=== PATIENT | male | born 1965 | race Caucasian/White ===

== ENCOUNTER → 2017-08-13 | Outpatient (CLI) | payer OTHER ==
[~2017-08-13] MED LIST: AMBIEN 5 MG TABL5 M1 PO; AMITRIPTYLINE100 MG PO; BELSOMRA20 MG PO; COMBIVENT INH; COMBIVENT RESPIM4 GM INH; FLEXERIL PO; FLOMAX0.4 MG PO; HYDROCODONE-AP1 EAC6 PO; KEFLEX500 MG PO; LIPITOR 20 MG T20 M1 PO; MEDROLDOSEPACK PO; MOBIC15 MG PO; NEURONTIN 300300 M1 PO; NORCO 5-325 TA1 EACH PO; NORTRIPTYLINE; OMEPRAZOLE40 MG PO; SINGULAIR 10 MG10 M1 PO; TRAZODONE HCL50 MG PO; WELLBUTRIN XL150 MG PO
--- NOTE | 2017-08-20 07:32 | PAINCON ---
[address] [address] PAIN MANAGEMENT CONSULTATION Name: FEROZSOFIA M Room: [facility]#: [id number] Admission: 08/13/17 Attend Phys: Sarah Beth De Anda Discharge: Date of : 63 Report #: [id number] THIS REPORT FOR: //name// CC: Julian Ordonez DATE OF SERVICE: 08/13/2017 HISTORY OF PRESENT ILLNESS: The patient is a 52-year-old gentleman, prior seen in the pain clinic on 01/29/2017. The patient was given a lumbar epidural injection with ongoing improvement of lumbar radicular pain. Returns to the pain clinic today, it has been approximately 6 months since our last visit. He had followed up with Dr. Conti at [facility], was referred to physical therapy. He is doing ongoing physical therapy 3 times a week. Has developed recurrent pain, low back, right anterior thigh down the leg, moderately antalgic gait. Chiropractic manipulation has afforded only transient relief. He has continued to take gabapentin 300 mg 2 at bedtime, which has helped remarkably with the upper back pain. In fact, he notes it is "unbelievable" the amount of relief he had with the back pain. He feels that the gabapentin is quite efficacious and wishes to redo that prescription. PHYSICAL EXAMINATION: GENERAL: Does show 52-year-old gentleman. Diffuse tenderness in the mid back area, though no discrete trigger points are noted. VITAL SIGNS: Blood pressure 134/80, pulse 62, respirations 16, BMI is 33.8 kilograms per meter squared. MUSCULOSKELETAL: Rises from chair using armrest. Upper back and trapezius muscles show some diffuse tenderness. No discrete trigger points are noted. Range of motion is good. Again with a near 6 weeks of PT ongoing, lumbar radicular symptoms remain problematic. Modestly antalgic gait. Positive straight leg raise, right. Slight decreased right hip flexion, lower extremity extension strength. ASSESSMENT: 1. Symptomatic thoracic radiculopathy, neuropathic pain. Recommendation: Continue gabapentin 300 mg 2-3 tablets at bedtime, taken the liberty of writing for 75 tablets with 2 refills. 2. Symptomatic lumbar radiculopathy, good relief with prior epidural injection back in January. RECOMMENDATION: Repeat epidural injection under fluoroscopy today. Continue physical therapy. Follow up in 2 weeks for reevaluation. PROCEDURE: Lumbar epidural [place] [address] PAIN MANAGEMENT CONSULTATION Name: SOFIA REDMAN Room: [facility]#: [id number] Admission: 08/13/17 Attend Phys: Sarah Beth De Anda Discharge: Date of : 63 Report #: [id number] PROCEDURE NOTE: After both written and informed consent to include risk of spinal cord damage, increased pain, weakness and dural puncture, the patient was taken to the fluoroscopy suite, placed in the prone position. After sterile prep and drape, a skin wheal with lidocaine was raised. A 22-gauge epidural Tuohy needle was inserted in the midline at L4-L5 with good loss to resistance. Negative aspiration for cerebrospinal fluid or blood was noted. Then 1 mL of Omnipaque under biplanar fluoroscopy showed good spread within the epidural space. This was followed with 80 mg of triamcinolone plus 1 mL of 1.5% preservative-free Xylocaine, 0.5 mL Xylocaine was then injected to flush the needle; it was removed. The patient was monitored for an appropriate period of time and discharged in good and stable condition. <ELECTRONICALLY SIGNED> By: Bernabe Ordonez DO 08/20/17 0732 1220 [id number] Ordonez DO /nt
== END | disposition home or self-care (01) ==
LOC: M.PC 01:27
DX: M54.16 Radiculopathy, lumbar region (principal); M54.14 Radiculopathy, thoracic region

== ENCOUNTER → 2017-10-29 | Outpatient (CLI) | payer OTHER ==
--- NOTE | 2017-11-03 08:35 | PAINCON ---
[address] [address] PAIN MANAGEMENT CONSULTATION Name: SOFIA REDMAN [id number] Admission: 10/29/17 Attend Phys: Sarah Beth De Anda Discharge: Date of : 63 Report #: [id number] THIS REPORT FOR: //name// CC: Julian Tse DATE OF SERVICE: 10/29/2017 The patient is a very pleasant 52-year-old gentleman, prior treated for symptomatic lumbar radiculopathy and thoracic radicular symptoms. Was seen in 11/2016 as an initial consult, had thoracic epidural injection on 12/17/2016 with overall improvement of symptoms, had lumbar epidural injection 01/29/2017 with overall improvement of lumbar radicular symptoms. The patient was last seen on 08/13/2017, had recurrence of lumbar radicular pain with paresthesia in the right leg in L3 and L4 distributions. I have done a single injection and referred the patient for surgery. Notes that the injection did afford good relief, but pain has begun to recur (patient notes 60-70% relief, but pain in the right thigh is recurrent in terms weakness and paresthesia). A new MRI from 10/22/[address] Woodrow Dawn does note L3-L4 to have facet and ligamentous hypertrophy, epidural lipomatosis is present, thecal sac is quite compressed at 5 mm AP diameter. There is mild left and moderate right foraminal stenosis. Again, he has right L3 and L4 distribution pain. L4-L5 notes diffuse disk bulge with epidural lipomatosis, thecal sac measuring 6 mm with mild bilateral facet stenosis. PHYSICAL EXAMINATION: Shows pleasant 52-year-old gentleman, BMI is modestly elevated at 35.2 kg/m2, blood pressure is 127/75, pulse 70, respirations 18. He is alert and oriented to person, place and time, judged to be a reasonable historian. Rise from chair using armrest, does have an antalgic gait, decreased right hip flexion and lower extremity extension strength. Does have objective 2-point discrimination both on the lateral and the medial thigh (there is some thought that he had lateral femoral cutaneous neuralgia, a.k.a. Meralgia paresthetica). With decreased 2-point discrimination on the medial aspect of the thigh, I think is somewhat precludes that diagnosis. He does have intact 2-point discrimination on the contralateral, left leg. Decrease hip flexion strength and lower extremity extension strength with diminished patellar reflex on the right side and significant compromise noted on the MRI correspond to symptomatic lumbar spinal stenosis. RECOMMENDATIONS: After discussion with the patient today, we have elected to proceed with epidural injection under fluoroscopy today, right of midline L4-[place] [address] PAIN MANAGEMENT CONSULTATION Name: SOFIA REDMAN Octavio Room: [facility]#: [id number] Admission: 10/29/17 Attend Phys: Sarah Beth De Anda Discharge: Date of : 63 Report #: [id number] We will have the patient follow up with Dr. Woodrow Dawn for consideration for decompressive lumbar laminectomy. Neuropathic pain and thoracic radicular symptoms are relatively quiescent. Continue gabapentin 300 mg at bedtime. Does not require prescription for same. I trialled nortriptyline in the past, but this caused some vertigo and subjective dizziness and he self-discontinued. PROCEDURE: Lumbar epidural injection under fluoroscopy. PROCEDURE NOTE: After both written and informed consent to include risk of spinal cord damage, increased pain, weakness and dural puncture, the patient was taken to the fluoroscopy suite, placed in the prone position. After sterile prep and drape, a skin wheal with lidocaine was raised. A 22-gauge epidural Tuohy needle was inserted in the midline at L4-L5 with good loss to resistance. Negative aspiration for cerebrospinal fluid or blood was noted. Then 1 mL of Omnipaque under biplanar fluoroscopy showed good spread within the epidural space. This was followed with 80 mg of triamcinolone plus 1 mL of 1.5% preservative-free Xylocaine, 0.5 mL Xylocaine was then injected to flush the needle; it was removed. The patient was monitored for an appropriate period of time and discharged in good and stable condition. <ELECTRONICALLY SIGNED> By: Bernabe Ordonez DO 11/03/17 0835 1331 [id number] Ordonez DO /nt
== END | disposition home or self-care (01) ==
LOC: M.PC 02:57
DX: M54.16 Radiculopathy, lumbar region (principal); G89.29 Other chronic pain; J44.9 Chronic obstructive pulmonary disease, unspecified; E78.5 Hyperlipidemia, unspecified; N40.0 Benign prostatic hyperplasia without lower urinary tract symptoms; K21.9 Gastro-esophageal reflux disease without esophagitis; F32.9 Major depressive disorder, single episode, unspecified; Z98.890 Other specified postprocedural states; Z79.899 Other long term (current) drug therapy; Z87.19 Personal history of other diseases of the digestive system

== ENCOUNTER → 2017-12-03 | Outpatient (CLI) | payer OTHER ==
--- NOTE | 2017-12-04 07:09 | PAINCON ---
[facility] [address] [place] [address] PAIN MANAGEMENT CONSULTATION Name: FEROZSOFIA M Room: [facility]#: [id number] Admission: 12/03/17 Attend Phys: Sarah Beth De Anda Discharge: Date of : 63 Report #: [id number] THIS REPORT FOR: //name// CC: Julian Ordonez DATE OF SERVICE: 12/03/2017 The patient is a very pleasant 52-year-old gentleman, last seen in the pain clinic 10/29/2017. We did epidural injection at that time with about 70% improvement in baseline pain. The pain is beginning to recur into the low back, right buttock and leg. Notes the paresthesia has improved, but does have some ongoing weakness in the right leg. Comorbidity includes COPD. The patient was recently released from work due to both pain concerns and COPD. I suggested that during this hiatus, he follow up with Dr. Dawn regarding decompressive laminectomy. He has fairly tight spinal stenosis at L3-L4 and L4-L5. PHYSICAL EXAMINATION: Today does show a pleasant 52-year-old gentleman, BMI is 34 kilograms per meter squared. Blood pressure 130/58, pulse 72, respirations are 16. Rises from chair using armrest, modestly antalgic gait, diffuse tenderness across the low back, positive straight leg raise on the right. Slight decreased right hip flexion strength. Incidentally, he has a finger splint on the left arm, he had some sutures in the fifth finger. There are no signs of infection or erythema. ASSESSMENT: Symptomatic lumbar radiculopathy secondary to spinal stenosis by clinical exam and history. RECOMMENDATION: Repeat epidural injection under fluoroscopy today at L5-S1. Follow up with Dr. Dawn for likely decompressive laminectomy. PROCEDURE: Lumbar epidural injection under fluoroscopy. PROCEDURE NOTE: After both written and informed consent to include risk of spinal cord damage, increased pain, weakness and dural puncture, the patient was taken to the fluoroscopy suite, placed in the prone position. After sterile prep and drape, a skin wheal with lidocaine was raised. A 22-gauge epidural Tuohy needle was inserted in the midline at L5-S1 with good loss to resistance. Negative aspiration for cerebrospinal fluid or blood was noted. Then 1 mL of Omnipaque under biplanar fluoroscopy showed good spread within the epidural space. This was followed with 80 mg of triamcinolone plus 1 mL of 1.5% preservative-free Xylocaine, 0.5 mL Xylocaine [place] [address] PAIN MANAGEMENT CONSULTATION Name: SOFIA REDMAN Room: [facility]#: [id number] Admission: 12/03/17 Attend Phys: Sarah Beth De Anda Discharge: Date of : 63 Report #: [id number] needle; it was removed. The patient was monitored for an appropriate period of time and discharged in good and stable condition. <ELECTRONICALLY SIGNED> By: Bernabe Ordonez DO 12/04/17 0709 1150 1539[facility] Centersnehal Ordonez DO /nt
== END | disposition home or self-care (01) ==
LOC: M.PC 03:44
DX: M48.061 Spinal stenosis, lumbar region without neurogenic claudication (principal); M54.16 Radiculopathy, lumbar region; G89.29 Other chronic pain; J44.9 Chronic obstructive pulmonary disease, unspecified; Z98.890 Other specified postprocedural states; Z79.899 Other long term (current) drug therapy

== ENCOUNTER 2019-01-01 18:38 | Emergency (ER) | payer OTHER ==
[~2019-01-01] VITALS: Ht 190.5 cm; Wt 127.0 kg
[2019-01-01 19:29] LABS: ABSOLUTE EOSINOPHILS 0.1 thou/uL (0.0-0.7); ABSOLUTE LYMPHOCYTES 2.1 thou/uL (0.8-5.3); ABSOLUTE MONOCYTES 0.5 thou/uL (0.0-1.2); ABSOLUTE NEUTROPHILS 3.2 thou/uL (1.6-8.1); BASOPHILS 0.6 %; EOSINOPHILS 2.1 %; HEMATOCRIT 46.1 % (42.0-52.0); HEMOGLOBIN 15.8 gm/dL (14.0-18.0); LYMPHOCYTES 35.6 %; MCH 30.2 pg (26.0-34.0); MCHC 34.2 g/dL (28.0-37.0); MCV 88.2 fL (80.0-100.0); MONOCYTES 7.8 %; MPV 7.7 fl. (7.2-11.1); NUCLEATED RBCS 0 /100WBC; PLATELET COUNT* 226 thou/uL (150-400); POLYS 53.9 %; RBC 5.23 mil/uL (4.50-6.00); RDW-CV 13.1 % (10.5-14.5); WBC 5.9 thou/uL (4.0-11.0)
[2019-01-01 19:33] LABS: ANION GAP 9 mmol/L (7-16); BUN 11 mg/dL (7-18); CHLORIDE 106 mmol/L (98-107); CO2 27 mmol/L (21-32); GLUCOSE 93 mg/dL (70-99); POTASSIUM 4.1 mmol/L (3.5-5.1); SODIUM 142 mmol/L (136-145)
[2019-01-01 19:43] LABS: ALBUMIN 4.1 g/dL (3.4-5.0); ALKALINE PHOSPHATASE 92 U/L (46-116); SGOT 23 U/L (15-37); SGPT 33 U/L (30-65); TOTAL BILIRUBIN 0.7 mg/dL (<0.1-1.0); TOTAL PROTEIN 7.1 g/dL (6.4-8.2); TROPONIN-I LEVEL <0.06 ng/mL (<0.06)
[2019-01-01] MEDS ORDERED: MEDROLDOSEPACK PO (20:09)
[2019-01-01] MEDS ORDERED: ACETAMINOPHEN-1 EAC1 PO (20:09)
[2019-01-01] MEDS ORDERED: NABUMETONE 750750 M1 PO (20:09)
[2019-01-01 20:20] VITALS: BP 146/95
--- NOTE | 2019-01-04 10:41 | EKG ---
[place] [address] ELECTROCARDIOGRAM REPORT Name: SOFIA REDMAN Room: [facility]#: [id number] Admission: 01/01/19 Attend Phys: Discharge: 01/01/19 Date of : 63 Report #: [id number] THIS REPORT FOR: //name// [facility] ED Test Date: 2019-01-01 Test Time: 19:33:02 Pat Name: SOFIA REDMAN Department: Room: Gender: M Unit Controller: : 1965 Requested By: Mariajose Kraft Order Number: [id number] MD: Chace Rebolledo Measurements Intervals [place] Rate: 59 P: 46 ND: 214 QRS: -2 QRSD: 99 T: 10 QT: 406 QTc: 403 Interpretive Statements Sinus rhythm Prolonged ND interval ST elev, probable normal early repol pattern Compared to ECG 10/29/2014 12:09:48 no change Electronically Signed On 01-04-2019 10:41:24 CDT by Chace Rebolledo [email or web address] <ELECTRONICALLY SIGNED> By: Chace Rebolledo MD, [facility] 01/04/19 1041 32 32 Chace Rebolledo MD, FAC /EPI
== END 2019-01-01 20:22 | disposition home or self-care (01) ==
LOC: M.ERS 18:38
PROVIDERS: Nurse Practitioner Family
DX: M79.632 Pain in left forearm (principal); M25.562 Pain in left knee; M79.622 Pain in left upper arm; J44.9 Chronic obstructive pulmonary disease, unspecified

== ENCOUNTER → 2019-09-13 | Outpatient (CLI) | payer OTHER ==
[~2019-09-13] MED LIST changes: +ACETAMINOPHEN-1 EAC1 PO; +NABUMETONE 750750 M1 PO
== END ==
LOC: M.ULTRA 09-10 11:00
DX: R16.0 Hepatomegaly, not elsewhere classified (principal)